=== PATIENT | female | born 1955 | race African-American/Black ===

== ENCOUNTER 2017-07-22 12:36 | Inpatient (IN) | payer OTHER ==
[~2017-07-22] VITALS: Ht 165.1 cm; Wt 110.7 kg
[~2017-07-22 12:36] MED LIST: AMLO10TA PO; CLIN300C2 PO; DOCU-67 PO; FERR-193 PO; FOLI1TAB19 PO; LAC PO; LEVO500T6 PO; METO-50 PO; OMEP40EC1 PO; PRON INH; Percocet PO; ROBAC PO; VAS2.5 PO
[2017-07-22] MEDS ORDERED: MONT10TA35 PO (12:50)
[2017-07-22] MEDS ORDERED: CETI-24 PO (12:50)
[2017-07-22] MEDS ORDERED: RANI150T15 PO (12:50)
[2017-07-22] MEDS ORDERED: [UNRECOGNIZED DRUG - CODE] PO (12:50)
[2017-07-22] MEDS ORDERED: BECL0.0464 INH (12:50)
[2017-07-22] MEDS ORDERED: NACL 0.9% 1,000 ML IV ONE (12:55)
[2017-07-22] MEDS ORDERED: ONDANSETRON 4 MG/2 ML VIAL IVP ONE (13:15)
[2017-07-22] MEDS ORDERED: MORPHINE SULFATE 4 MG/ML SYR IVP ONE (13:15)
[2017-07-22 13:24] LABS: HEMOGLOBIN 9.9 g/dL (12.0-16.0); MEAN CORPUSCULAR HGB CONC 30 g/dL (33-37)
[2017-07-22 13:30] LABS: HEMATOCRIT 33.1 % (36-48); MEAN CORPUSCULAR HEMOGLOBIN 25 pg (27-31); MEAN CORPUSCULAR VOLUME 82 fL (80-94); PLATELET COUNT (AUTO) 466 K/uL (140-450); RED BLOOD CELL COUNT(AUTO) 4.01 MIL/uL (4.20-5.40); RED CELL DISTRIBUTION WIDTH 20.1 % (11.6-13.7); WHITE BLOOD COUNT (AUTO) 12.9 K/uL (4.8-10.8)
[2017-07-22 13:39] LABS: BILIRUBIN,URINE NEGATIVE (NEGATIVE); BLOOD, URINE NEGATIVE (NEGATIVE); COLOR,URINE YELLOW (YELLOW); LEUKOCYTE ESTERASE ,URINE NEGATIVE (NEGATIVE); NITRITE, URINE NEGATIVE (NEGATIVE); PH,URINE 6.5 (5.0-9.0); UGLUCOSE NEGATIVE (NEGATIVE)
[2017-07-22 13:41] LABS: BASOPHILS % (MANUAL) 1 % (0-2); EOSINOPHILS % (MANUAL) 1 % (0-4); LYMPHOCYTES % (MANUAL) 20 % (20-46); MONOCYTES % (MANUAL) 8 % (5-12)
[2017-07-22 13:45] LABS: RBC,URINE 0-5 (RARE) /HPF (0-5); WBC,URINE 0-5 (RARE) /HPF (0-5)
[2017-07-22 13:46] LABS: APPEARANCE,URINE SLIGHTLY HAZY (CLEAR)
[2017-07-22 14:00] LABS: CARBON DIOXIDE 22.4 mmol/L (21-32); CREATININE 1.3 mg/dL (0.6-1.3); POTASSIUM 3.4 mmol/L (3.5-5.1)
[2017-07-22 14:06] LABS: ALBUMIN 4.1 g/dL (3.4-5.0); TOTAL BILIRUBIN 0.7 mg/dL (0.0-1.0)
[2017-07-22] MEDS ORDERED: ONDANSETRON 4 MG/2 ML VIAL IVP PRN (15:15)
[2017-07-22] MEDS ORDERED: ACETAMINOPHEN 325 MG TAB PO PRN (15:15)
[2017-07-22] MEDS ORDERED: MORPHINE SULFATE 2 MG/ML SYR IVP PRN (16:15)
[2017-07-22 16:16] LABS: CHOL/HDL RATIO 1.7 (1-4.5); PHOSPHORUS 3.8 mg/dL (2.5-4.9)
[2017-07-22 16:17] LABS: FREE T4 (FREE THYROXINE) 0.84 ng/dL (0.76-1.46); THYROID STIMULATING HORMONE 2.51 uIU/mL (0.34-3.74)
[2017-07-22] MEDS ORDERED: TAMSULOSIN 0.4 MG CAP PO SCH (16:20)
[2017-07-22] MEDS: NACL 0.9% 1,000 ML IV SCH (16:29)
[2017-07-22 16:30] VITALS: BP 118/73
[2017-07-22] MEDS ORDERED: LEVOFLOXACIN 750 MG/D5W PREMIX 150 ML IV SCH (16:30)
[2017-07-22] MEDS ORDERED: ALBUTEROL SULFATE/IPRATROPIU 3 ML SOL IH PRN (16:45)
[2017-07-22 16:59] LABS: BARBITURATE, URINE NEG. ng/ml (NEG <=200); BENZODIAZEPINE, URINE POS. ng/mL (NEG <=200); CANNABINOID, URINE NEG. ng/mL (NEG <=50); COCAINE, URINE NEG. ng/mL (NEG <=300); OPIATE, URINE NEG. ng/mL (NEG <=2000); PHENCYCLIDINE SCREEN,URINE NEG. ng/mL (NEG <=25)
[2017-07-22 17:28] LABS: PROTHROMBIN TIME 10.4 secs (10.8-13.4)
[2017-07-22] MEDS: TAMSULOSIN 0.4 MG CAP PO SCH (17:57)
[2017-07-22] MEDS: OXYBUTYNIN 5 MG TAB PO SCH ×2 (17:57→21:00)
[2017-07-22 20:00] VITALS: BP 131/72
[2017-07-22] MEDS: ALBUTEROL SULFATE/IPRATROPIU 3 ML SOL IH SCH (20:06)
[2017-07-22] MEDS: DOCUSATE SODIUM 100 MG GELCAP PO SCH ×2 (20:58→21:00)
[2017-07-22] MEDS: ENALAPRIL 2.5 MG TAB PO SCH (20:59)
[2017-07-22] MEDS: METOPROLOL 50 MG TAB PO SCH (20:59)
[2017-07-22] MEDS ORDERED: NON-FORMULARY ITEM (Ranitidine HCl (Zantac) 1 TAB) PO SCH (21:00)
[2017-07-22] MEDS ORDERED: OXYBUTYNIN 5 MG TAB PO SCH (21:00)
[2017-07-22] MEDS: MORPHINE SULFATE 2 MG/ML SYR IVP PRN (22:39)
[2017-07-23] MEDS: NACL 0.9% 1,000 ML IV SCH ×3 (00:15→16:15)
[2017-07-23 00:17] VITALS: BP 99/63
[2017-07-23] MEDS: MORPHINE SULFATE 2 MG/ML SYR IVP PRN ×2 (02:46→06:56)
[2017-07-23 04:00] VITALS: BP 103/57
[2017-07-23] MEDS ORDERED: PANTOPRAZOLE 40 MG TABEC PO SCH (06:30)
[2017-07-23] MEDS ORDERED: diphenhydrAMINE 50 MG/ML VIAL IVP PRN (06:50)
[2017-07-23] MEDS ORDERED: diphenhydrAMINE 50 MG/ML VIAL IVP SCH (06:55)
[2017-07-23] MEDS: ALBUTEROL SULFATE/IPRATROPIU 3 ML SOL IH SCH ×3 (06:57→19:00)
[2017-07-23 08:00] VITALS: BP 99/59
[2017-07-23] MEDS ORDERED: TAMSULOSIN 0.4 MG CAP PO SCH (08:30)
[2017-07-23] MEDS: TAMSULOSIN 0.4 MG CAP PO SCH (08:53)
[2017-07-23] MEDS: OXYBUTYNIN 5 MG TAB PO SCH ×2 (08:53→20:44)
[2017-07-23] MEDS: DOCUSATE SODIUM 100 MG GELCAP PO SCH ×3 (08:53→20:44)
[2017-07-23] MEDS: MONTELUKAST SODIUM 10 MG TAB PO SCH (08:53)
[2017-07-23] MEDS: FOLIC ACID 1 MG TAB PO SCH (08:53)
[2017-07-23] MEDS: METOPROLOL 50 MG TAB PO SCH ×2 (08:55→20:44)
[2017-07-23] MEDS: amLODIPine 5 MG TAB PO SCH (08:56)
[2017-07-23] MEDS: TRIAMTERENE/HCTZ 37.5/25 MG 1 TAB PO SCH (08:56)
[2017-07-23] MEDS: ENALAPRIL 2.5 MG TAB PO SCH (08:56)
[2017-07-23] MEDS ORDERED: POTASSIUM CHLORIDE 10 MEQ TABER PO SCH ×3 (09:00→12:50)
[2017-07-23] MEDS ORDERED: [UNRECOGNIZED DRUG - REMARK] PO SCH (09:00)
[2017-07-23] MEDS: HYDROmorphone 1 MG/ML AMP IVP PRN ×3 (09:14→21:51)
[2017-07-23 09:47] LABS: BASOPHILS # (AUTO) 0.2 K/uL (0.00-0.22); EOSINOPHILS # (AUTO) 0.1 K/uL (0-0.4); EOSINOPHILS % (AUTO) 1.3 % (0.0-4.0); HEMATOCRIT 28.2 % (36-48); HEMOGLOBIN 8.6 g/dL (12.0-16.0); LYMPHOCYTES # (AUTO) 3.4 K/uL (2.5-16.5); LYMPHOCYTES % (AUTO) 32.2 % (20.5-51.1); MEAN CORPUSCULAR HEMOGLOBIN 25 pg (27-31); MEAN CORPUSCULAR HGB CONC 31 g/dL (33-37); MEAN CORPUSCULAR VOLUME 83 fL (80-94); MONOCYTES % (AUTO) 9.7 % (1.7-9.3); NEUTROPHILS % (AUTO) 54.8 % (42.2-75.2); PLATELET COUNT (AUTO) 453 K/uL (140-450); RED CELL DISTRIBUTION WIDTH 19.5 % (11.6-13.7); WHITE BLOOD COUNT (AUTO) 10.7 K/uL (4.8-10.8)
[2017-07-23 09:56] LABS: MAGNESIUM 1.7 mg/dL (1.8-2.4); PHOSPHORUS 4.1 mg/dL (2.5-4.9)
[2017-07-23 09:57] LABS: ANION GAP 16.1 (8-16); CARBON DIOXIDE 23.1 mmol/L (21-32); CREATININE 2.1 mg/dL (0.6-1.3); POTASSIUM 3.2 mmol/L (3.5-5.1)
[2017-07-23 12:00] VITALS: BP 101/57
[2017-07-23] MEDS ORDERED: NACL 0.9% 1,000 ML IV ONE (12:00)
[2017-07-23] MEDS ORDERED: MAGNESIUM OXIDE 400 MG TAB PO SCH (12:50)
[2017-07-23] MEDS ORDERED: hydrOXYzine PAMOATE 25 MG CAP PO SCH (13:00)
[2017-07-23 16:00] VITALS: BP 122/57
[2017-07-23] MEDS: hydrOXYzine PAMOATE 25 MG CAP PO PRN (16:56)
[2017-07-23 21:48] VITALS: BP 107/70
[2017-07-24] MEDS: NACL 0.9% 1,000 ML IV SCH ×3 (00:15→17:56)
[2017-07-24] MEDS: hydrOXYzine PAMOATE 25 MG CAP PO PRN ×2 (00:35→08:42)
[2017-07-24] MEDS: HYDROcodone/APAP 7.5/325 MG 1 TAB PO PRN ×3 (00:41→11:39)
[2017-07-24] MEDS: HYDROmorphone 1 MG/ML AMP IVP PRN ×3 (03:33→15:38)
[2017-07-24] MEDS ORDERED: hydrOXYzine 50 MG/ML VIAL IM SCH (05:00)
[2017-07-24 06:59] LABS: ANION GAP 14.7 (8-16); CARBON DIOXIDE 22.1 mmol/L (21-32); POTASSIUM 3.8 mmol/L (3.5-5.1)
[2017-07-24 07:02] LABS: MAGNESIUM 1.8 mg/dL (1.8-2.4); PHOSPHORUS 3.5 mg/dL (2.5-4.9)
[2017-07-24 07:19] LABS: BASOPHILS # (AUTO) 0.3 K/uL (0.00-0.22); BASOPHILS % (AUTO) 3.9 % (0.0-2.0); EOSINOPHILS # (AUTO) 0.1 K/uL (0-0.4); EOSINOPHILS % (AUTO) 1.3 % (0.0-4.0); HEMATOCRIT 24.5 % (36-48); HEMOGLOBIN 7.6 g/dL (12.0-16.0); LYMPHOCYTES # (AUTO) 2.5 K/uL (2.5-16.5); LYMPHOCYTES % (AUTO) 29.3 % (20.5-51.1); MEAN CORPUSCULAR HEMOGLOBIN 25 pg (27-31); MEAN CORPUSCULAR HGB CONC 31 g/dL (33-37); MEAN CORPUSCULAR VOLUME 82 fL (80-94); MONOCYTES # (AUTO) 0.8 K/uL (0.8-1.0); MONOCYTES % (AUTO) 8.9 % (1.7-9.3); NEUTROPHILS # (AUTO) 4.9 K/uL (1.8-7.7); NEUTROPHILS % (AUTO) 56.6 % (42.2-75.2); PLATELET COUNT (AUTO) 312 K/uL (140-450); RED BLOOD CELL COUNT(AUTO) 2.97 MIL/uL (4.20-5.40); RED CELL DISTRIBUTION WIDTH 20.4 % (11.6-13.7)
[2017-07-24] MEDS: ALBUTEROL SULFATE/IPRATROPIU 3 ML SOL IH SCH ×3 (07:24→19:20)
[2017-07-24 07:38] LABS: WHITE BLOOD COUNT (AUTO) 8.6 K/uL (4.8-10.8)
[2017-07-24 08:00] VITALS: BP 112/72
[2017-07-24] MEDS ORDERED: diphenhydrAMINE 50 MG CAP PO PRN ×2 (08:15→11:15)
[2017-07-24] MEDS: DOCUSATE SODIUM 100 MG GELCAP PO SCH (08:40)
[2017-07-24] MEDS: amLODIPine 5 MG TAB PO SCH (08:40)
[2017-07-24] MEDS: TAMSULOSIN 0.4 MG CAP PO SCH (08:40)
[2017-07-24] MEDS: METOPROLOL 50 MG TAB PO SCH ×2 (08:41→09:00)
[2017-07-24] MEDS: FOLIC ACID 1 MG TAB PO SCH (08:41)
[2017-07-24] MEDS: OXYBUTYNIN 5 MG TAB PO SCH (08:41)
[2017-07-24] MEDS: MONTELUKAST SODIUM 10 MG TAB PO SCH (08:42)
[2017-07-24] MEDS ORDERED: SODIUM PHOSPHATE 118 ML ENEM RC SCH (08:57)
[2017-07-24] MEDS: TRIAMTERENE/HCTZ 37.5/25 MG 1 TAB PO SCH (09:00)
[2017-07-24] MEDS ORDERED: POTASSIUM CHLORIDE 10 MEQ TABER PO SCH (09:00)
[2017-07-24] MEDS ORDERED: MAGNESIUM OXIDE 400 MG TAB PO SCH (09:00)
[2017-07-24] MEDS ORDERED: LORazepam 2 MG/ML VIAL IVP SCH (11:35)
[2017-07-24] MEDS ORDERED: TAMS0.4C96 PO ×2 (15:51→18:37)
[2017-07-24] MEDS ORDERED: DIT5 PO ×2 (15:51→18:37)
[2017-07-24] MEDS ORDERED: FLUO10CA21 PO ×2 (15:51→18:37)
[2017-07-24 16:00] VITALS: BP 126/78
[2017-07-24] MEDS ORDERED: LORazepam 2 MG/ML VIAL IVP PRN (17:45)
[2017-07-24] MEDS ORDERED: MONTELUKAST SODIUM 10 MG TAB PO SCH (21:00)
[2017-07-26 08:39] LABS: FERRITIN 16 ng/mL (15 - 150)
[2017-07-27 11:53] LABS: TRANSFERRIN 371 mg/dL (200-370)
== END 2017-07-24 21:05 | disposition home or self-care (01) | DRG 698 ==
LOC: MED 12:36 → MTU 15:20
PROVIDERS: ADMIT Family Medicine; ATTEND Family Medicine
DX: N32.89 Other specified disorders of bladder (principal); N17.0 Acute kidney failure with tubular necrosis; E87.2 Acidosis; E11.51 Type 2 diabetes mellitus with diabetic peripheral angiopathy without gangrene; I69.254 Hemiplegia and hemiparesis following other nontraumatic intracranial hemorrhage affecting left non-dominant side; K59.00 Constipation, unspecified; F43.9 Reaction to severe stress, unspecified; F32.9 Major depressive disorder, single episode, unspecified; F41.1 Generalized anxiety disorder; R33.9 Retention of urine, unspecified; E83.42 Hypomagnesemia; G47.00 Insomnia, unspecified; J44.9 Chronic obstructive pulmonary disease, unspecified; E87.6 Hypokalemia; D64.9 Anemia, unspecified; I10 Essential (primary) hypertension; Z88.6 Allergy status to analgesic agent; Z91.09 Other allergy status, other than to drugs and biological substances; Z88.0 Allergy status to penicillin; Z90.49 Acquired absence of other specified parts of digestive tract; Z82.49 Family history of ischemic heart disease and other diseases of the circulatory system; R06.2 Wheezing
CPT/HCPCS: 36415; 51702; 71010; 76705; 76770; 80048; 80053; 80305; 81001; 82150; 82550; 82570; 82728; 83036; 83540; 83605; 83690; 83735; 83880; 83935; 84100; 84300; 84439; 84443; 84484; 85025; 85045; 85610; 85730; 87040; 87081; 93005; 94640; 96361; 96374; 96375; 99285; J1170; J1200; J1956; J2060; J2270; J2405; J7030; J7620; Q0092; Q0163; Q0177